=== PATIENT | female | born 1960 | race African-American/Black ===

== ENCOUNTER → 2017-03-19 | Outpatient (CLI) | payer MEDICAID ==
[~2017-03-19] MED LIST: CYMB60CA PO; DULO1CAP3 PO; FERR1TAB58 PO; FLUT50SP NASAL; GABA300C5 PO; METF500T PO; MULT-11 PO; MULT-121 PO; NIGHLIQ PO; PRAV40TA2 PO; [UNRECOGNIZED DRUG - OTHER]; glucose strips
--- NOTE | 2017-03-20 14:55 | EKG ---
Date Performed: 03/19/2017 Time Performed: 12:26:19 PTAGE: 56 years EKG: Sinus rhythm LOW QRS VOLTAGE IN PRECORDIAL LEADS Since previous tracing, no significant change noted BORDERLINE E CG PREVIOUS TRACING : 04/12/2015 11.53 DOCTOR: Charles Guillen Interpretating Date/Time 03/20/2017 14:53:09
== END ==
LOC: HCAV 12:07
PROVIDERS: ATTEND Psychiatry & Neurology Child & Adolescent Psychiatry
DX: F41.1 Generalized anxiety disorder (principal); F33.0 Major depressive disorder, recurrent, mild
CPT/HCPCS: 93005

== ENCOUNTER 2017-06-23 16:03 | Emergency (ER) | payer MEDICAID ==
[~2017-06-23] VITALS: Ht 170.2 cm; Wt 121.8 kg
[2017-06-23 16:36] VITALS: BP 146/70; PULSE 72; RESP 18; TEMP 97.7; O2SAT 97
--- NOTE | 2017-06-23 16:55 | PD ---
HPI Chief Complaint: Fall Time Seen by Provider: 16:53 Travel History International Travel<30 days: No Contact w/Intl Traveler<30days: No Traveled to known affect area: No History of Present Illness HPI 56-year-old female presents to the emergency department with complaint of left shoulder pain, left forearm pain, right knee pain after tripping over a baby in a walker and falling today. Does not recall hitting her head. Denies loss of consciousness. Is also complaining of right lateral neck pain. Has been ambulatory since after the fall. Denies chest pain, shortness of breath, abdominal pain, back pain. Reports feeling nauseated without vomiting. Denies anticoagulant therapy. Has tried ice and ibuprofen for symptom management. Rates pain 7/10. Describes as throbbing and aching all over. Worse with movement. Better at rest. Does not know the name of her primary care provider. Allergies to penicillin. History of diabetes mellitus type 2 and is on metformin, neuropathy, hypercholesterolemia. 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) Neurologic: Yes (numbness in l leg with pain and weakness) Psychiatric: Yes (anxiety) Reproductive: No Respiratory: No Migraines: No Myocardial Infarction: No Radiation Therapy: No Renal Failure: No Seizures: No Sickle Cell Disease: No Thyroid Disease: No Ulcer: No Tetanus Vaccination: > 5 Years : 2 Para: 2 Miscarriage: 0 : 0 Past Surgical History Abdominal Surgery: No AICD: No Appendectomy: No Arteriovenous Shunt: No Cardiac Surgery: No Section: Yes (2000) Cholecystectomy: No Ear Surgery: No Endocrine Surgery: No Eye Surgery: No Genitourinary Surgery: No Gynecologic Surgery: Yes (HAS HAD SEVERAL D & C'S) Insulin Pump: No Joint Replacement: No Neurologic Surgery: No Oral Surgery: No Pacemaker: No Thoracic Surgery: No Other Surgery: Yes Social History Alcohol Use: Yes (2 BEERS/ WEEK) Tobacco Use: No Substance Use: No Allergies-Medications (Allergen,Severity, Reaction): Coded Allergies: penicillin G (Unverified Allergy, Severe, 06/23/17) Reported Meds & Prescriptions Reported Meds & Active Scripts Active [glucose strips] 1 Strip .XX DAILY Metformin (Metformin HCl) 500 Mg Tab 500 Mg PO BIDPC With meals Duloxetine DR (Duloxetine HCl) 60 Mg Capdr 60 Mg PO DAILY Gabapentin 300 Mg Cap 300 Mg PO BID [glucosemeter] 1 Units .XX DAILY Reported Cymbalta DR (Duloxetine HCl) 60 Mg Capdr 60 Mg PO DAILY Nighttime Cold/Flu Relief 15-6.25-500 mg/15Ml (Dextromethorphan-Doxylamine- Acetaminophen Liq) 1 Liq Liq 30 Ml PO Q4HR One Daily Multivitamin/Ir (Multiple Vitamins W/ Minerals) 1 Tab Tab 1 Tab PO DAILY Iron (Ferrous Sulfate) 50 Mg Tab 65 Mg PO DAILY Alive Womens Energy (Multiple Vitamins W/ Minerals) 1 Tab Tab 1 Tab PO DAILY Fluticasone Nasal [place] 50 Mcg/Act Naspr 50 NASAL BID 50 mcg/spray Pravastatin 40 Mg Tab 40 Mg PO HS Review of Systems Except as stated in HPI: all other systems reviewed are Neg Physical Exam Narrative GENERAL: Well-nourished, well-developed black female patient, in no acute distress SKIN: Warm and dry. HEAD: Atraumatic. Normocephalic. No facial or scalp abrasions or lacerations noted. No facial droop noted. Tongue midline. Shoulder shrug equal. EYES: Pupils equal and round at 3 mm with brisk reaction. No scleral icterus. No injection or drainage. No raccoon eyes. No orbital tenderness on palpation bilaterally. ENT: Mucosa pink and moist. No erythema or exudates. No uvular edema. No uvular , palatal, or tonsillar deviation. Airway patent. Nares without nasal blood, purulent drainage or septal hematoma. No rhinorrhea. EARS: Bilateral pinnae and external canals appear within normal limits. Bilateral tympanic membranes without erythema, dullness, hemotympanum or perforation. No otorrhea. No walls signs. NECK: Moving freely. Trachea midline. No lymphadenopathy. Active rotation of the neck greater than 45 left and right. No midline point tenderness on palpation of the cervical spine. Reproducible tenderness to the right lateral musculature of the neck. No obvious deformities. CHEST: No retractions or use of accessory muscles. CARDIOVASCULAR: Regular rate and rhythm. No murmur appreciated. RESPIRATORY: No accessory muscle use. Clear to auscultation. Breath sounds equal bilaterally. GASTROINTESTINAL: Obese. Abdomen soft, non-tender, nondistended. Hepatic and splenic margins not palpable. Bowel sounds are active 4 quadrants. MUSCULOSKELETAL: Left shoulder with approximately 90 abduction; joint stable; without erythema, edema, ecchymosis; with tenderness on palpation and with tenderness on abduction; no obvious deformities. 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 Left upper and right lower extremities are supple and nontender with 2+ pulses and sensory intact without erythema or edema. Right knee with tenderness and patient to the patellar aspect; without erythema, edema, ecchymosis; no obvious deformity; flexion to 90 and joint stable with negative drawer test. No obvious deformities. No clubbing. No cyanosis. No edema. BACK: No midline point tenderness on palpation of the lumbar or thoracic spine. No obvious deformities. Patient sitting up in bed at 90. NEUROLOGICAL: Awake and alert. Oriented 3. No obvious cranial nerve deficits. Motor grossly within normal limits. Normal speech. Moves all extremities. 5/5 strength to all extremities. Sensory intact. PSYCHIATRIC: Appropriate mood and affect; insight and judgment normal. Data Data Last Documented VS Vital Signs Date Time Temp Pulse Resp B/P (MAP) Pulse Ox O2 Delivery O2 Flow Rate FiO2 06/23/17 16:36 97.7 72 18 146/70 (95) 97 Orders Orders Forearm (2vws) (06/23/17 17:20) Knee, Complete (4vws) (06/23/17 17:20) Shoulder, Complete (>2vws) (06/23/17 17:20) Ketorolac Inj (Toradol Inj) (06/23/17 17:30) Orphenadrine Inj (Norflex Inj) (06/23/17 17:30) Ed Discharge Order (06/23/17 18:55) [facility] Medical Decision Making Medical Screen Exam Complete: Yes Emergency Medical Condition: Yes Medical Record Reviewed: Yes Differential Diagnosis Fall, sprain, fracture, contusion Narrative Course 56-year-old female with multiple complaints after mechanical fall today. Does not recall hitting her head. denies loss of consciousness. Denies nausea, vomiting. On physical exam the patient is without raccoon eyes, walls signs, rhinorrhea, or hemotympanum. I do not suspect open or depressed skull fracture , and the patient has no signs of basilar skull fracture. [place] CT Head Injury Rule suggests a head CT is not necessary for this patient and clears the patient for head injury without imaging. Complaining of right lateral neck pain. [place] C-Spine Rule suggests the C-Spine can be cleared clinically of fracture, and imaging is not required. There is no midline point tenderness on palpation of the cervical spine. The patient is able to actively rotate the neck 45 left and right. The patient is sitting up in bed at 90. The patient is ambulatory. Toradol, Norflex, left shoulder, left forearm, right knee x-ray ordered. Shoulder X-Ray 06/23/171719 Signed Impressions: Service Date/Time: Friday, June 23, 2017 17:46 - CONCLUSION: Normal examination for a patient of this age. Vivek Key MD Radius/Ulna X-Ray 06/23/171719 Signed Impressions: Service Date/Time: Friday, June 23, 2017 17:38 - CONCLUSION: Normal examination for a patient of this age. Vivek Key MD Knee X-Ray 06/23/171719 Signed Impressions: Service Date/Time: Friday, June 23, 2017 17:45 - CONCLUSION: 1. Mild osteoarthritis. No acute findings. Vivek Key MD X-ray findings discussed with the patient. Kain bandage provided for support. Patient has a cane at the bedside. Declines crutches. Says she has a walker at home for support. Instructed patient to follow-up if symptoms persist greater than 7-10 days. Patient says she has prescription for 800 mg ibuprofen at home. Instructed patient to follow up with primary care provider. Patient verbalizes understanding and agreement with treatment plan. Patient is medically cleared and stable for discharge. Discussed reasons to return to the emergency department. Patient agrees with treatment plan. The patients vital signs are stable and the patient is stable for outpatient follow-up and treatment. Patient discharged home, stable and in no acute distress. Diagnosis Primary Impression: Fall Qualified Codes: W19.XXXA - Unspecified fall, initial encounter Additional Impressions: Shoulder pain Qualified Codes: M25.512 - Pain in left shoulder Right knee pain Qualified Codes: M25.561 - Pain in right knee Left forearm pain Referrals: Primary Care Physician Patient Instructions: Fall Prevention (ED), General Instructions, Knee Pain (ED ), Knee Sprain (ED), Shoulder Sprain (ED) Additional Instructions: Tylenol or ibuprofen as needed and as directed to reduce pain and inflammation Rest, ice, compress, and elevate extremity to decrease pain and inflammation Knee brace for support cane/walker for support Avoid aggravating activity; increase activity as tolerated Follow-up with primary care provider Follow-up with orthopedics if symptoms persist greater than 7-10 days Return to the emergency department immediately with worsening symptoms Med/Other Pt SpecificInfo: Prescription(s) given, No Change to Meds, No Meds Exist/No RX given Scripts Methocarbamol (Robaxin) 500 Mg Tab 500 MG PO QID Y for MUSCLE SPASM, #30 TAB 0 Refills Prov: Josie Larios 06/23/17 Ibuprofen (Ibuprofen) 800 Mg Tab 800 MG PO Q6HR Y for PAIN, #30 TAB 0 Refills Prov: Josie Larios 06/23/17 Disposition: 01 DISCHARGE HOME Condition: Stable Josie Larios Jun 23, 2017 16:55
[2017-06-23] MEDS ORDERED: ORPHENADRINE INJ 60 MG/2 ML AMP IM ONE (17:30)
[2017-06-23] MEDS ORDERED: KETOROLAC TROMETHAMINE 60 MG/2 ML (IM) VIAL IM ONE (17:30)
--- NOTE | 2017-06-23 18:19 | RADRPT ---
EXAM DATE/TIME: 06/23/2017 17:38 [facility] COMPARISON: No previous studies available for comparison. INDICATIONS : Forearm pain left side, fall. MEDICAL HISTORY : None. SURGICAL HISTORY : None. ENCOUNTER: Initial ACUITY: 1 day PAIN SCORE: 5/10 LOCATION: Left forearm FINDINGS: Two view examination of the left forearm demonstrates no evidence of fracture or dislocation. Bony m ineralization is normal. The soft tissue structures are intact. CONCLUSION: Normal examination for a patient of this age. Vivek Key MD on June 23, 2017 at 18:16 Board Certified Radiologist. This report was verified electronically.
--- NOTE | 2017-06-23 18:20 | RADRPT ---
EXAM DATE/TIME: 06/23/2017 17:45 [facility] COMPARISON: No previous studies available for comparison. INDICATIONS : Pain in right knee, from fall. MEDICAL HISTORY : None. SURGICAL HISTORY : None. ENCOUNTER: Initial ACUITY: 1 day PAIN SCORE: 5/10 LOCATION: Right knee FINDINGS: Four view examination of the right knee demonstrates no evidence of fracture or dislocation. Bony mi neralization is normal. The articular surfaces are intact. The suprapatellar soft tissues have a no rmal configuration. CONCLUSION: 1. Mild osteoarthritis. No acute findings. Vivek Key MD on June 23, 2017 at 18:17 Board Certified Radiologist. This report was verified electronically.
--- NOTE | 2017-06-23 18:41 | RADRPT ---
EXAM DATE/TIME: 06/23/2017 17:46 [facility] COMPARISON: No previous studies available for comparison. INDICATIONS : Fall pain in left shoulder. MEDICAL HISTORY : None. SURGICAL HISTORY : None. ENCOUNTER: Initial ACUITY: 1 day PAIN SCORE: 5/10 LOCATION: Left shoulder FINDINGS: Multiple view examination of the left shoulder demonstrates no evidence of fracture or dislocation. The glenohumeral and acromioclavicular joints are maintained. There is normal range of motion betwee n internal and external rotation. Bony mineralization is normal. CONCLUSION: Normal examination for a patient of this age. Vivek Key MD on June 23, 2017 at 18:37 Board Certified Radiologist. This report was verified electronically.
[2017-06-23] MEDS ORDERED: ROBA500T PO (19:02)
[2017-06-23] MEDS ORDERED: IBUP1TAB7 PO (19:02)
== END 2017-06-23 19:23 | disposition home or self-care (01) ==
LOC: NEPK 16:03
DX: M25.512 Pain in left shoulder (principal); M25.561 Pain in right knee; M79.632 Pain in left forearm; F41.9 Anxiety disorder, unspecified; M19.021 Primary osteoarthritis, right elbow; Z79.84 Long term (current) use of oral hypoglycemic drugs
CPT/HCPCS: 73030; 73090; 73564; 96372; 99284; J1885; J2360

== ENCOUNTER 2017-08-03 18:24 | Emergency (ER) | payer MEDICAID ==
[~2017-08-03 18:24] MED LIST changes: +IBUP1TAB7 PO; +ROBA500T PO
[2017-08-03 19:07] VITALS: BP 154/71; PULSE 63; RESP 18; TEMP 98; O2SAT 100
[2017-08-03] MEDS ORDERED: METF500T PO (19:38)
[2017-08-03] MEDS ORDERED: NEOMSUS EACH EYE (19:38)
--- NOTE | 2017-08-03 19:44 | PD ---
HPI Chief Complaint: Eye Problems/Injury Time Seen by Provider: 19:15 Travel History International Travel<30 days: No Contact w/Intl Traveler<30days: No Traveled to known affect area: No History of Present Illness HPI 56-year-old female presents emergency department with bilateral conjunctivitis type symptoms since having eyelash extensions placed last Thursday. She had burning at that time. She states she had them removed yesterday, but has had worsening purulent drainage from both eyes with crusting this morning. She denies changes in her vision. Discomfort is 6 out of 10. She denies fever, chills, or other constitutional symptoms. She is allergic to penicillin. PFSH Past Medical History Arthritis: No Asthma: No Autoimmune Disease: No Blood Disorders: No Anxiety: No Depression: No Heart Rhythm Problems: No Cancer: No Cardiovascular Problems: No High Cholesterol: No Chemotherapy: No Chest Pain: No Congestive Heart Failure: No COPD: No Cerebrovascular Accident: No Diabetes: Yes Patient Takes Glucophage: No Diminished Hearing: No Endocrine: No Gastrointestinal Disorders: No GERD: No Glaucoma: No Genitourinary: No Headaches: No Hepatitis: No Hiatal Hernia: No Heparin Induced Thrombocytopen: No Hypertension: No Immune Disorder: No Implanted Vascular Access Dvce: No Kidney Stones: No Musculoskeletal: Yes (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 and l knee) Neurologic: Yes (numbness in l leg with pain and weakness) Psychiatric: Yes (anxiety) Reproductive: No Respiratory: No Immunizations Current: Yes Migraines: No Myocardial Infarction: No Radiation Therapy: No Renal Failure: No Seizures: No Sickle Cell Disease: No Thyroid Disease: No Ulcer: No Tetanus Vaccination: > 5 Years Influenza Vaccination: No : 2 Para: 2 Miscarriage: 0 : 0 Past Surgical History Abdominal Surgery: No AICD: No Appendectomy: No Arteriovenous Shunt: No Cardiac Surgery: No Section: Yes (2000) Cholecystectomy: No Ear Surgery: No Endocrine Surgery: No Eye Surgery: No Genitourinary Surgery: No Gynecologic Surgery: Yes (HAS HAD SEVERAL D & C'S) Insulin Pump: No Joint Replacement: No Neurologic Surgery: No Oral Surgery: No Pacemaker: No Thoracic Surgery: No Other Surgery: Yes Social History Alcohol Use: Yes (2 BEERS/ WEEK) Tobacco Use: No Substance Use: No Allergies-Medications (Allergen,Severity, Reaction): Coded Allergies: penicillin G (Unverified Allergy, Severe, 5/14/18) Reported Meds & Prescriptions Reported Meds & Active Scripts Active Qzmwpixg-Nahknphvf-UJ Opth Drops 3.5-10,000-1 Ng-Units-% Susp 1 Drop EACH EYE Q4H 7 Days Metformin (Metformin HCl) 500 Mg Tab 500 Mg PO BIDPC With meals Robaxin (Methocarbamol) 500 Mg Tab 500 Mg PO QID PRN Ibuprofen 800 Mg Tab 800 Mg PO Q6HR PRN [glucose strips] 1 Strip .XX DAILY Duloxetine DR (Duloxetine HCl) 60 Mg Capdr 60 Mg PO DAILY Gabapentin 300 Mg Cap 300 Mg PO BID [glucosemeter] 1 Units .XX DAILY Reported Cymbalta DR (Duloxetine HCl) 60 Mg Capdr 60 Mg PO DAILY Nighttime Cold/Flu Relief 15-6.25-500 mg/15Ml (Dextromethorphan-Doxylamine- Acetaminophen Liq) 1 Liq Liq 30 Ml PO Q4HR One Daily Multivitamin/Ir (Multiple Vitamins W/ Minerals) 1 Tab Tab 1 Tab PO DAILY Iron (Ferrous Sulfate) 50 Mg Tab 65 Mg PO DAILY Alive Womens Energy (Multiple Vitamins W/ Minerals) 1 Tab Tab 1 Tab PO DAILY Fluticasone Nasal [place] 50 Mcg/Act Naspr 50 NASAL BID 50 mcg/spray Pravastatin 40 Mg Tab 40 Mg PO HS Review of Systems Except as stated in HPI: all other systems reviewed are Neg General / Constitutional: No: Fever, Chills Eyes: Positive: Drainage, Redness, Pain, Tearing, No: Diploplia, Blurred Vision , Photophobia, Foreign Body Sensation, Blind Spots, Visual changes, Blindness HENT: No: Headaches Cardiovascular: No: Chest Pain or Discomfort Respiratory: No: Shortness of Breath Gastrointestinal: No: Abdominal Pain Genitourinary: No: Dysuria Musculoskeletal: No: Pain Skin: No Rash Neurologic: No: Weakness Psychiatric: No: Depression Endocrine: No: Polydipsia Hematologic/Lymphatic: No: Easy Bruising Physical Exam Narrative GENERAL: Patient appears in no obvious distress per SKIN: Warm and dry. Normal color. Normal turgor. No signs of rash. HEAD: Atraumatic. Normocephalic. EYES: Pupils equal and round. No scleral icterus. Both eyes have mild conjunctival injection with purulent drainage noted bilaterally. ENT: No nasal bleeding or discharge. Mucous membranes pink and moist. Pharynx is clear. Airways patent NECK: Trachea midline. Supple and nontender. CARDIOVASCULAR: Regular rate and rhythm. RESPIRATORY: No accessory muscle use. Clear to auscultation. Breath sounds equal bilaterally. MUSCULOSKELETAL: Extremities without clubbing, cyanosis, or edema. No obvious deformities. NEUROLOGICAL: Awake and alert. No obvious cranial nerve deficits. Motor grossly within normal limits. Five out of 5 muscle strength in the arms and legs. Normal speech. PSYCHIATRIC: Appropriate mood and affect; insight and judgment normal. Data Data Last Documented VS Vital Signs Date Time Temp Pulse Resp B/P (MAP) Pulse Ox O2 Delivery O2 Flow Rate FiO2 08/03/17 19:07 98.0 63 18 154/71 (98) 100 MDM Medical Decision Making Medical Screen Exam Complete: Yes Emergency Medical Condition: Yes Differential Diagnosis Chemical conjunctivitis. Bacterial conjunctivitis. Request for metformin refill per Narrative Course Patient is given neomycin/polymyxin/dexamethasone ophthalmic drops to both eyes every 4 hours for the next 7 days while awake. Patient is given a refill of her metformin 500 mg twice daily #60. Patient should avoid further exposure in the future. Patient to follow-up with sample paster or return to emergency department if symptoms worsen as needed Diagnosis Primary Impression: Acute conjunctivitis, bilateral Qualified Codes: H10.33 - Unspecified acute conjunctivitis, bilateral Additional Impression: Type 2 diabetes mellitus Qualified Codes: E11.9 - Type 2 diabetes mellitus without complications Referrals: Melani Patton MD as needed Patient Instructions: Conjunctivitis (ED), General Instructions, How to Use Eye Drops (ED) Additional Instructions: Patient is given neomycin/polymyxin/dexamethasone ophthalmic drops to both eyes every 4 hours for the next 7 days while awake. Patient is given a refill of her metformin 500 mg twice daily #60. Patient should avoid further exposure in the future. Patient to follow-up with sample paster or return to emergency department if symptoms worsen as needed Scripts Ssclqjil-Kxbglrsur-SL Opth Drops (Rbjntqfp-Pbhysiems-XC Opth Drops) 3.5-10,000- 1 Ng-Units-% Susp 1 DROP EACH EYE Q4H for Infection for 7 Days, BOTTLE 0 Refills Prov: Rodrigo Flowers MD 08/03/17 Metformin (Metformin) 500 Mg Tab 500 MG PO BIDPC for Blood Sugar Management, #60 TAB 1 Refill With meals Prov: Rodrigo Flowers MD 08/03/17 Disposition: 01 DISCHARGE HOME Condition: Tyrone Gaspar August 03, 2017 19:44
== END 2017-08-03 19:56 | disposition home or self-care (01) ==
LOC: NEPK 18:24
DX: H10.33 Unspecified acute conjunctivitis, bilateral (principal); E11.9 Type 2 diabetes mellitus without complications; Z79.84 Long term (current) use of oral hypoglycemic drugs
CPT/HCPCS: 99283